=== PATIENT | female | born 1975 | race Caucasian/White ===

== ENCOUNTER 2018-09-03 09:28 | Inpatient (IN) | payer MEDICAID ==
[~2018-09-03] VITALS: Ht 162.6 cm; Wt 65.5 kg
[2018-09-03] MEDS ORDERED: HYPERTENSIVE PO (09:57)
[2018-09-03 10:56] LABS: BASOPHILS % (AUTO) 0.9 % (0.0-2.0); EOSINOPHILS % (AUTO) 0.4 % (1.0-6.0); HEMATOCRIT 39.7 % (36-46); LYMPHOCYTES % (AUTO) 17.1 % (22.0-44.0); MEAN CORPUSCULAR HEMOGLOBIN 26.9 pg (26.0-34.0); MEAN CORPUSCULAR HGB CONC 32.8 G/dL (31.0-37.0); MEAN CORPUSCULAR VOLUME 82 fL (80-100); MONOCYTES # (AUTO) 0.8 K/uL (0.1-1.0); MONOCYTES % (AUTO) 6.6 % (2.0-9.0); NEUTROPHILS # (AUTO) 8.7 K/uL (1.8-7.7); PLATELET COUNT (AUTO) 381 K/uL (150-450); RED BLOOD CELL COUNT(AUTO) 4.84 MIL/uL (4.00-5.20); RED CELL DISTRIBUTION WIDTH 16.3 % (11.5-14.5)
[2018-09-03 11:15] LABS: ALANINE AMINOTRANSFERASE 36 U/L (12-78); ALBUMIN 4.2 g/dL (3.4-5.0); ALKALINE PHOSPHATASE 82 U/L (46-116); ANION GAP 15 mmol/L (8-16); ASPARTATE AMINOTRANSFERASE 26 U/L (15-37); BILIRUBIN,TOTAL 0.3 mg/dL (0.1-1.0); CALCIUM, TOTAL 8.7 mg/dL (8.8-10.5); CARBON DIOXIDE 26 mmol/L (22-29); CHLORIDE 96 mmol/L (98-107); CREATININE 0.53 mg/dL (0.60-1.30); GLOMERULAR FILTR. RATE CALC > 60 mL/min (>60); GLUCOSE,RANDOM 104 mg/dL (70-110); SODIUM SERUM 137 mmol/L (136-145); TOTAL PROTEIN, SERUM 7.9 g/dL (6.4-8.2); UREA NITROGEN, BLOOD 6 mg/dL (7-18)
[2018-09-03 11:17] LABS: POTASSIUM 2.9 mmol/L (3.5-5.1)
[2018-09-03] MEDS ORDERED: NITROPRUSSIDE SODIUM 50 MG in DEXTROSE 5%-WATER 248 ML IV PRN (11:30)
[2018-09-03] MEDS ORDERED: POTASSIUM CHLORIDE 20 MEQ ER TABLET PO ONE (12:30)
[2018-09-03] MEDS ORDERED: KETOROLAC TROMETHAMINE 30 MG/ML VIAL IVP ONE ×2 (13:00)
[2018-09-03] MEDS ORDERED: SODIUM CHLORIDE 0.9% 1,000 ML IV ONE (13:00)
[2018-09-03] MEDS ORDERED: SODIUM CHLORIDE 0.9% 1,900 ML IV ONE (13:00)
[2018-09-03] MEDS: LABETALOL HCL 200 MG TABLET PO SCH ×3 (14:21→23:22)
[2018-09-03] MEDS ORDERED: HydrALAZINE HCL 20 MG/ML VIAL IVP PRN (15:45)
[2018-09-03] MEDS ORDERED: AmLODIPine BESYLATE 5 MG TABLET PO ONE (15:45)
[2018-09-03] MEDS ORDERED: ACETAMINOPHEN 500 MG TABLET PO ONE (16:15)
[2018-09-03 18:45] VITALS: BP 138/87
[2018-09-03 20:07] VITALS: BP 117/77
[2018-09-03] MEDS ORDERED: POTASSIUM CHLORIDE 20 MEQ ER TABLET PO PRN (21:30)
[2018-09-03] MEDS ORDERED: 0.9% SODIUM CHLORIDE 10 ML SYRINGE IVP PRN ×2 (21:30→22:00)
[2018-09-03] MEDS ORDERED: ONDANSETRON HCL 4 MG/2 ML VIAL IVP PRN ×2 (21:30→22:00)
[2018-09-03] MEDS ORDERED: POTASSIUM CHL 10 MEQ/WATER 50 ML IV PRN (21:30)
[2018-09-03] MEDS ORDERED: MAGNESIUM HYDROXIDE SUSPENSION 30 ML UDCUP PO PRN (21:30)
[2018-09-03] MEDS ORDERED: OxyCODONE HCL/ACETAMINOPHEN 5-325 MG TABLET PO PRN ×3 (21:30→22:00)
[2018-09-03] MEDS ORDERED: ACETAMINOPHEN 325 MG TABLET PO PRN (21:30)
[2018-09-03] MEDS: DOCUSATE SODIUM 100 MG CAPSULE PO SCH ×2 (21:31→22:00)
[2018-09-03] MEDS: OxyCODONE HCL/ACETAMINOPHEN 5-325 MG TABLET PO PRN (21:31)
[2018-09-03] MEDS ORDERED: HYDR25TA PO (23:14)
[2018-09-03 23:36] VITALS: BP 123/69
[2018-09-04] MEDS: OxyCODONE HCL/ACETAMINOPHEN 5-325 MG TABLET PO PRN (05:17)
[2018-09-04 05:32] VITALS: BP 122/79
[2018-09-04] MEDS: LABETALOL HCL 200 MG TABLET PO SCH (06:00)
[2018-09-04 06:18] LABS: EOSINOPHILS % (AUTO) 2.4 % (1.0-6.0); HEMATOCRIT 34.9 % (36-46); HEMOGLOBIN 11.7 g/dL (12.0-16.0); LYMPHOCYTES # (AUTO) 2.1 K/uL (1.0-4.8); LYMPHOCYTES % (AUTO) 33.5 % (22.0-44.0); MEAN CORPUSCULAR HEMOGLOBIN 27.2 pg (26.0-34.0); MEAN CORPUSCULAR HGB CONC 33.5 G/dL (31.0-37.0); MEAN CORPUSCULAR VOLUME 81 fL (80-100); MONOCYTES # (AUTO) 0.6 K/uL (0.1-1.0); MONOCYTES % (AUTO) 10.4 % (2.0-9.0); NEUTROPHILS # (AUTO) 3.2 K/uL (1.8-7.7); NEUTROPHILS % (AUTO) 52.7 % (40.0-70.0); PLATELET COUNT (AUTO) 343 K/uL (150-450); RED BLOOD CELL COUNT(AUTO) 4.29 MIL/uL (4.00-5.20); RED CELL DISTRIBUTION WIDTH 16.8 % (11.5-14.5)
[2018-09-04 06:37] LABS: ALANINE AMINOTRANSFERASE 30 U/L (12-78); ALBUMIN 3.3 g/dL (3.4-5.0); ALKALINE PHOSPHATASE 67 U/L (46-116); ANION GAP 8 mmol/L (8-16); ASPARTATE AMINOTRANSFERASE 20 U/L (15-37); BILIRUBIN,TOTAL 0.3 mg/dL (0.1-1.0); CALCIUM, TOTAL 8.8 mg/dL (8.8-10.5); CARBON DIOXIDE 27 mmol/L (22-29); CHLORIDE 103 mmol/L (98-107); CREATININE 0.72 mg/dL (0.60-1.30); GLOMERULAR FILTR. RATE CALC > 60 mL/min (>60); GLUCOSE,RANDOM 86 mg/dL (70-110); POTASSIUM 3.4 mmol/L (3.5-5.1); SODIUM SERUM 138 mmol/L (136-145); TOTAL PROTEIN, SERUM 6.8 g/dL (6.4-8.2); UREA NITROGEN, BLOOD 8 mg/dL (7-18)
[2018-09-04] MEDS ORDERED: SODIUM CHLORIDE 0.9% 1,000 ML IV ONE (07:03)
[2018-09-04 07:39] VITALS: BP 130/89
[2018-09-04] MEDS: DOCUSATE SODIUM 100 MG CAPSULE PO SCH ×4 (08:08→20:14)
[2018-09-04] MEDS: PANTOPRAZOLE SODIUM 40 MG DR TABLET PO SCH ×2 (08:09→08:11)
[2018-09-04] MEDS: AmLODIPine BESYLATE 5 MG TABLET PO SCH ×2 (08:39→20:09)
[2018-09-04] MEDS: SPIRONOLACTONE 25 MG TABLET PO SCH (08:39)
[2018-09-04 13:08] VITALS: BP 118/63
[2018-09-04 15:58] VITALS: BP 140/79
[2018-09-04 19:35] VITALS: BP 142/86
[2018-09-04 23:40] VITALS: BP 130/73
[2018-09-05 05:05] VITALS: BP 128/75
[2018-09-05 06:10] LABS: BASOPHILS % (AUTO) 1.8 % (0.0-2.0); EOSINOPHILS % (AUTO) 3.7 % (1.0-6.0); HEMATOCRIT 34.9 % (36-46); HEMOGLOBIN 11.5 g/dL (12.0-16.0); LYMPHOCYTES % (AUTO) 31.4 % (22.0-44.0); MEAN CORPUSCULAR HEMOGLOBIN 27.3 pg (26.0-34.0); MEAN CORPUSCULAR HGB CONC 32.9 G/dL (31.0-37.0); MEAN CORPUSCULAR VOLUME 83 fL (80-100); MONOCYTES # (AUTO) 0.6 K/uL (0.1-1.0); MONOCYTES % (AUTO) 9.8 % (2.0-9.0); NEUTROPHILS # (AUTO) 3.4 K/uL (1.8-7.7); NEUTROPHILS % (AUTO) 53.3 % (40.0-70.0); PLATELET COUNT (AUTO) 325 K/uL (150-450); RED BLOOD CELL COUNT(AUTO) 4.21 MIL/uL (4.00-5.20); RED CELL DISTRIBUTION WIDTH 16.4 % (11.5-14.5)
[2018-09-05 06:14] LABS: ALANINE AMINOTRANSFERASE 25 U/L (12-78); ALKALINE PHOSPHATASE 60 U/L (46-116); ANION GAP 10 mmol/L (8-16); ASPARTATE AMINOTRANSFERASE 15 U/L (15-37); BILIRUBIN,TOTAL 0.1 mg/dL (0.1-1.0); CALCIUM, TOTAL 9.1 mg/dL (8.8-10.5); CARBON DIOXIDE 26 mmol/L (22-29); CHLORIDE 104 mmol/L (98-107); CREATININE 0.58 mg/dL (0.60-1.30); GLOMERULAR FILTR. RATE CALC > 60 mL/min (>60); GLUCOSE,RANDOM 87 mg/dL (70-110); POTASSIUM 4.4 mmol/L (3.5-5.1); SODIUM SERUM 140 mmol/L (136-145); TOTAL PROTEIN, SERUM 6.1 g/dL (6.4-8.2); UREA NITROGEN, BLOOD 13 mg/dL (7-18)
[2018-09-05 07:32] VITALS: BP 136/76
[2018-09-05] MEDS: PANTOPRAZOLE SODIUM 40 MG DR TABLET PO SCH ×2 (08:39→08:40)
[2018-09-05] MEDS: SPIRONOLACTONE 25 MG TABLET PO SCH (08:39)
[2018-09-05] MEDS: OxyCODONE HCL/ACETAMINOPHEN 5-325 MG TABLET PO PRN (08:39)
[2018-09-05] MEDS: DOCUSATE SODIUM 100 MG CAPSULE PO SCH ×2 (08:39)
[2018-09-05] MEDS: AmLODIPine BESYLATE 5 MG TABLET PO SCH (08:39)
[2018-09-05 11:26] VITALS: BP 134/71
[2018-09-05] MEDS ORDERED: AMLO-511 PO (14:13)
[2018-09-05] MEDS ORDERED: SPIR25 PO (14:14)
[2018-09-05 14:57] VITALS: BP 119/74
== END 2018-09-05 15:45 | disposition home or self-care (01) | DRG 199 ==
LOC: EMS 09:32 → 5S 15:45
PROVIDERS: ADMIT Internal Medicine; ATTEND Internal Medicine
DX: I16.0 Hypertensive urgency (principal); E87.6 Hypokalemia; H53.8 Other visual disturbances; Z79.899 Other long term (current) drug therapy; Z82.49 Family history of ischemic heart disease and other diseases of the circulatory system; Z83.3 Family history of diabetes mellitus
CPT/HCPCS: 70450; 82088; 83735; 84132; 84244; 93005; 93306; 96365; 96375; G0378; J1885; J3480; J3490; J7030; J7060

== ENCOUNTER 2018-09-14 20:57 | Emergency (ER) | payer MEDICAID ==
[~2018-09-14] VITALS: Ht 160 cm; Wt 72.7 kg
[~2018-09-14 20:57] MED LIST: AMLO-511 PO; SPIR25 PO
[2018-09-14] MEDS ORDERED: AMLO-511 PO (21:03)
[2018-09-14] MEDS ORDERED: KETOROLAC TROMETHAMINE 60 MG/2 ML VIAL IM ONE (21:30)
[2018-09-14] MEDS ORDERED: LORazepam 1 MG TABLET PO ONE (21:30)
[2018-09-14] MEDS ORDERED: ONDANSETRON HCL 4 MG TABLET PO ONE (21:30)
[2018-09-14 21:48] LABS: BASOPHILS % (AUTO) 0.7 % (0.0-2.0); EOSINOPHILS % (AUTO) 0.3 % (1.0-6.0); HEMATOCRIT 36.4 % (36-46); HEMOGLOBIN 11.9 g/dL (12.0-16.0); LYMPHOCYTES # (AUTO) 1.9 K/uL (1.0-4.8); LYMPHOCYTES % (AUTO) 20.2 % (22.0-44.0); MEAN CORPUSCULAR HEMOGLOBIN 26.6 pg (26.0-34.0); MEAN CORPUSCULAR HGB CONC 32.8 G/dL (31.0-37.0); MEAN CORPUSCULAR VOLUME 81 fL (80-100); MONOCYTES # (AUTO) 0.3 K/uL (0.1-1.0); MONOCYTES % (AUTO) 3.5 % (2.0-9.0); NEUTROPHILS # (AUTO) 7.1 K/uL (1.8-7.7); NEUTROPHILS % (AUTO) 75.3 % (40.0-70.0); PLATELET COUNT (AUTO) 442 K/uL (150-450); RED BLOOD CELL COUNT(AUTO) 4.49 MIL/uL (4.00-5.20); RED CELL DISTRIBUTION WIDTH 16.3 % (11.5-14.5)
[2018-09-14 22:04] LABS: ANION GAP 10 mmol/L (8-16); CALCIUM, TOTAL 8.8 mg/dL (8.8-10.5); CARBON DIOXIDE 27 mmol/L (22-29); CHLORIDE 104 mmol/L (98-107); CREATININE 0.61 mg/dL (0.60-1.30); GLOMERULAR FILTR. RATE CALC > 60 mL/min (>60); GLUCOSE,RANDOM 118 mg/dL (70-110); POTASSIUM 3.8 mmol/L (3.5-5.1); SODIUM SERUM 141 mmol/L (136-145); UREA NITROGEN, BLOOD 13 mg/dL (7-18)
[2018-09-14 22:06] LABS: ALANINE AMINOTRANSFERASE 29 U/L (12-78); ALBUMIN 3.8 g/dL (3.4-5.0); ALKALINE PHOSPHATASE 67 U/L (46-116); ASPARTATE AMINOTRANSFERASE 18 U/L (15-37); BILIRUBIN,TOTAL 0.1 mg/dL (0.1-1.0); TOTAL PROTEIN, SERUM 7.5 g/dL (6.4-8.2)
[2018-09-14 23:08] VITALS: BP 138/78
[2018-09-14 23:14] LABS: HCG,QUANTITATIVE < 1 mIU/mL (0-6)
== END 2018-09-14 23:10 | disposition home or self-care (01) ==
LOC: EMS 21:01
DX: F41.9 Anxiety disorder, unspecified (principal); R51 Headache; R11.2 Nausea with vomiting, unspecified; F10.129 Alcohol abuse with intoxication, unspecified; I10 Essential (primary) hypertension; Y90.6 Blood alcohol level of 120-199 mg/100 ml
CPT/HCPCS: 36415; 80053; 84702; 85025; 96372; 99284; G0480; J1885; Q0162

== ENCOUNTER 2019-06-06 18:17 | Emergency (ER) | payer MEDICAID ==
[~2019-06-06] VITALS: Ht 157.5 cm; Wt 75.0 kg
[~2019-06-06 18:17] MED LIST changes: -AMLO-511 PO; +AMLO5TAB9 PO; -SPIR25 PO
[2019-06-06] MEDS ORDERED: SERT100T12 PO (18:25)
[2019-06-06] MEDS ORDERED: LOSA50TA64 PO (18:25)
[2019-06-06 18:37] LABS: GLUCOSE,POINT OF CARE 114 MG/DL (70-110)
[2019-06-06] MEDS ORDERED: KETOROLAC TROMETHAMINE 60 MG/2 ML VIAL IM ONE (19:45)
[2019-06-06] MEDS ORDERED: METHOCARBAMOL 750 MG TABLET PO ONE (20:00)
[2019-06-06] MEDS ORDERED: METHOCARBAMOL 500 MG TABLET PO ONE ×2 (20:00)
[2019-06-06] MEDS ORDERED: ONDANSETRON HCL 4 MG TABLET PO ONE (20:15)
[2019-06-06 20:28] VITALS: BP 135/94
== END 2019-06-06 20:31 | disposition home or self-care (01) ==
LOC: EMS 18:20
DX: M62.838 Other muscle spasm (principal); I10 Essential (primary) hypertension; Z79.899 Other long term (current) drug therapy
CPT/HCPCS: 82962; 96372; 99283; J1885; Q0162

== ENCOUNTER 2020-09-24 21:32 | Emergency (ER) | payer MEDICAID ==
[~2020-09-24] VITALS: Ht 162.6 cm; Wt 74.5 kg
[~2020-09-24 21:32] MED LIST changes: -AMLO5TAB9 PO; +LOSA50TA37 PO; +SERT-162 PO
[2020-09-24] MEDS ORDERED: RABIES VACCINE (PCEC)/PF 2.5 UNITS/ML SYRINGE IM ONE (22:30)
[2020-09-24] MEDS ORDERED: AMOX TR/POT CLAV 875 MG/125 MG TABLET PO ONE (22:30)
[2020-09-24] MEDS ORDERED: RABIES IMMUNE GLOBULIN/PF 300 UNITS/ML 5 ML VIAL IM ONE (22:30)
[2020-09-24] MEDS ORDERED: PERTUSS(ACELL),DIPH,TET VAC/PF 0.5 ML SYRINGE IM ONE (22:30)
[2020-09-24] MEDS ORDERED: LORazepam 1 MG TABLET PO ONE ×2 (23:00)
[2020-09-24] MEDS ORDERED: LIDOCAINE 1% 10 ML VIAL ONE (23:43)
[2020-09-24] MEDS ORDERED: LIDOCAINE 1% 10 ML VIAL SQ ONE (23:45)
[2020-09-25] MEDS ORDERED: LIDOCAINE/PRILOCAINE 2.5% 30 GM CREAM TP ONE
[2020-09-25 00:20] VITALS: BP 146/84
[2020-09-25] MEDS ORDERED: BACITRACIN 0.9 GM PACKET OINTMENT TP ONE ×2 (00:33→00:45)
[2020-09-25] MEDS ORDERED: IBUPROFEN 600 MG TABLET PO ONE (00:45)
== END 2020-09-25 00:50 | disposition home or self-care (01) ==
LOC: EMS 21:32
DX: S61.432A Puncture wound without foreign body of left hand, initial encounter (principal); F32.9 Major depressive disorder, single episode, unspecified; I10 Essential (primary) hypertension; W54.0XXA Bitten by dog, initial encounter; Y93.89 Activity, other specified; Y92.89 Other specified places as the place of occurrence of the external cause; Y99.8 Other external cause status
CPT/HCPCS: 73130; 90375; 90471; 90472; 90675; 90715; 96372; 99284; J3490

== ENCOUNTER 2020-09-27 11:09 | Emergency (ER) | payer MEDICAID ==
[~2020-09-27] VITALS: Ht 162.6 cm; Wt 74.5 kg
[2020-09-27] MEDS ORDERED: RABIES VACCINE (PCEC)/PF 2.5 UNITS/ML SYRINGE IM ONE (11:45)
[2020-09-27 12:23] VITALS: BP 141/87
== END 2020-09-27 12:45 | disposition home or self-care (01) ==
LOC: EMS 11:15
DX: S61.432A Puncture wound without foreign body of left hand, initial encounter (principal); I10 Essential (primary) hypertension; W54.0XXA Bitten by dog, initial encounter; Y93.89 Activity, other specified; Y92.89 Other specified places as the place of occurrence of the external cause; Y99.8 Other external cause status
CPT/HCPCS: 90471; 90675; 99283

== ENCOUNTER 2020-10-01 12:36 | Emergency (ER) | payer MEDICAID ==
[~2020-10-01] VITALS: Ht 162.6 cm; Wt 68.2 kg
[2020-10-01] MEDS ORDERED: AMOX1TAB15 PO (12:41)
[2020-10-01 12:59] VITALS: BP 140/88
[2020-10-01] MEDS ORDERED: RABIES VACCINE (PCEC)/PF 2.5 UNITS/ML SYRINGE IM ONE (13:00)
== END 2020-10-01 13:20 | disposition home or self-care (01) ==
LOC: EMS 12:39
DX: S61.451D Open bite of right hand, subsequent encounter (principal); X58.XXXD Exposure to other specified factors, subsequent encounter
CPT/HCPCS: 90471; 90675; 96372; 99281; 99283

== ENCOUNTER 2020-10-09 09:05 | Emergency (ER) | payer MEDICAID ==
[~2020-10-09] VITALS: Ht 162.6 cm; Wt 61.4 kg
[~2020-10-09 09:05] MED LIST changes: +AMOX1TAB15 PO
[2020-10-09] MEDS ORDERED: RABIES VACCINE (PCEC)/PF 2.5 UNITS/ML SYRINGE IM ONE (09:45)
[2020-10-09 10:33] VITALS: BP 141/86
== END 2020-10-09 10:35 | disposition home or self-care (01) ==
LOC: EMS 09:09
DX: Z23 Encounter for immunization (principal); I10 Essential (primary) hypertension
CPT/HCPCS: 90471; 90675; 99283

== ENCOUNTER 2023-04-24 21:11 | Emergency (ER) | payer MEDICAID ==
[~2023-04-24] VITALS: Ht 162.6 cm; Wt 61.4 kg
[~2023-04-24 21:11] MED LIST changes: +LOSA-382 PO; -LOSA50TA37 PO
[2023-04-24 21:12] VITALS: TEMP 98.2
[2023-04-24] MEDS ORDERED: KETOROLAC TROMETHAMINE 60 MG/2 ML VIAL IM ONE (22:15)
[2023-04-24 23:41] VITALS: BP 138/71; PULSE 77; RESP 18
[2023-04-24] MEDS ORDERED: IBUP-1492 PO (23:51)
[2023-04-24] MEDS ORDERED: METH-659 PO (23:51)
== END 2023-04-25 00:04 | disposition home or self-care (01) ==
LOC: EMS 21:11
DX: G44.209 Tension-type headache, unspecified, not intractable (principal); I10 Essential (primary) hypertension; Z98.890 Other specified postprocedural states
CPT/HCPCS: 99285; 70450; 81025; 96372; J1885

== ENCOUNTER 2024-03-11 18:41 | Emergency (ER) | payer MEDICAID ==
[~2024-03-11] VITALS: Ht 160 cm; Wt 74.0 kg
[~2024-03-11 18:41] MED LIST changes: +IBUP-1492 PO; +METH-659 PO
[2024-03-11 18:49] VITALS: TEMP 98.1
[2024-03-11] MEDS: SODIUM CHLORIDE 0.9% 1,000 ML IV ONE (20:49)
[2024-03-11] MEDS: DiphenhydrAMINE HCL 50 MG/ML VIAL IVP ONE (20:50)
[2024-03-11] MEDS: PROCHLORPERAZINE EDISYLATE 5 MG/ML 2 ML VIAL IVP ONE (20:51)
[2024-03-11] MEDS: KETOROLAC TROMETHAMINE 30 MG/ML VIAL IVP ONE (20:51)
[2024-03-11] MEDS: ACETAMINOPHEN 500 MG TABLET PO ONE (20:51)
[2024-03-11 21:40] VITALS: BP 154/70; PULSE 66; RESP 18; O2SAT 98
== END 2024-03-11 21:57 | disposition home or self-care (01) ==
LOC: EMS 18:41
DX: R51.9 Headache, unspecified (principal); R11.0 Nausea; I10 Essential (primary) hypertension
CPT/HCPCS: 99284; 96374; 96375; 96361; J1200; J1885; J0780; J7030